=== PATIENT | female | born 2000 | race Caucasian/White ===

== ENCOUNTER 2022-12-03 23:29 | Emergency (ER) | payer OTHER ==
[~2022-12-03] VITALS: Ht 165.1 cm; Wt 77.1 kg
[2022-12-03 23:51] VITALS: BP 116/60; TEMP 98.8
[2022-12-04 00:48] LABS: PREGNANCY TEST URINE QUAL NEGATIVE (NEGATIVE)
[2022-12-04] MEDS ORDERED: CIPR7.5D9 LEFT EAR (00:57)
[2022-12-04 01:01] VITALS: O2SAT 100
== END 2022-12-04 01:01 | disposition home or self-care (01) ==
LOC: ER 23:42
DX: H60.92 Unspecified otitis externa, left ear (principal); Z60.2 Problems related to living alone
CPT/HCPCS: 84703-TC